=== PATIENT | female | born 1990 | race Caucasian/White ===

== ENCOUNTER 2024-03-19 08:38 | Emergency (ER) | payer BC ==
[2024-03-19 08:58] VITALS: BP 119/81; PULSE 84; RESP 18; TEMP 98.2
[2024-03-19] MEDS ORDERED: ACETAMINOPHEN 325 MG TABLET (FP) ONE (09:37)
[2024-03-19 09:53] LABS: HEMATOCRIT 43.4 % (32.4-45.2); HEMOGLOBIN 14.6 G/dL (10.7-15.3); MCH 31.1 pg (25.7-33.7); MCHC 33.5 g/dl (32.0-36.0); MEAN CELL VOLUME 92.8 fl (80-96); PLATELET COUNT 257.5 10^3/uL (134-434); RBC 4.68 10^6/uL (3.60-5.2); RDW 13.5 % (11.6-15.6); WHITE BLOOD COUNT 13.8 10^3/uL (4.0-10.8)
[2024-03-19 09:56] LABS: HCG,QUALITATIVE URINE Negative
[2024-03-19 09:58] LABS: PLATELET ESTIMATE ADEQUATE
[2024-03-19 10:05] LABS: ALBUMIN 4.4 g/dl (3.4-5.0); BILIRUBIN,TOTAL 0.6 mg/dl (0.2-1); CALCIUM 9.6 mg/dl (8.5-10.1); CREATININE 0.8 mg/dl (0.6-1.3); POTASSIUM 3.9 mmol/L (3.5-5.1); TOT PROT 6.8 g/dl (6.4-8.2)
[2024-03-19] MEDS: ACETAMINOPHEN 325 MG TABLET (FP) PO ONE (10:16)
== END 2024-03-19 11:05 | disposition home or self-care (01) ==
LOC: FER 08:38
DX: R10.9 Unspecified abdominal pain (principal); R11.0 Nausea
CPT/HCPCS: 36415; 74021-TC-FY; 76775-TC; 80053; 81003; 84703; 85025; 87086; 99284-25